=== PATIENT | female | born 1975 | race Two or more races ===

== ENCOUNTER 2023-02-26 08:52 | Outpatient (CLI) | payer OTHER | END 2023-02-26 09:14 | disposition home or self-care (01) | LOC: SONOGRAMA 08:52 | PROVIDERS: ATTEND Pathology Anatomic Pathology & Clinical Pathology | DX: D44.0 Neoplasm of uncertain behavior of thyroid gland (principal); E07.9 Disorder of thyroid, unspecified ==

== ENCOUNTER 2023-09-20 10:19 | Outpatient (CLI) | payer OTHER | END 2023-09-20 10:24 | disposition home or self-care (01) | LOC: SONOGRAMA 10:19 | PROVIDERS: ATTEND Pathology Anatomic Pathology & Clinical Pathology | DX: D34 Benign neoplasm of thyroid gland (principal); E07.89 Other specified disorders of thyroid; E04.1 Nontoxic single thyroid nodule ==